=== PATIENT | female | born 1990 | race Caucasian/White ===

== ENCOUNTER 2017-05-09 12:31 | Emergency (ER) | payer OTHER ==
[~2017-05-09] VITALS: Ht 162.6 cm; Wt 158.3 kg
[~2017-05-09 12:31] MED LIST: BACTRIM,SEPT1 TABLET PO; CEFDINIR300 MG PO; CLEOCIN300 MG PO; DEPAKOTE250 MG PO; DEPAKOTE500 MG PO; ENDOCET 5-3251 EACH PO; GEODON60 MG PO; IBUPROFEN800 MG PO; KEFLEX500 MG PO; LORTAB 5-325 M1 EACH PO; MOTRIN600 MG PO; NO MEDICATIONS; NOHOMEMEDS; NORCO 5/3251 TABLET PO; ONDANSETRON HCL8 MG PO; PERCOCET 5/31 TABLET PO; PREDNISONE10 MG PO; PRENATAL TABLE1 EAC3 PO; PRENATAL VITAM1 EAC1 PO; PROZAC20 MG PO; TORADOL10 MG PO; TRAMADOL HCL50 MG PO; TRILEPTAL300 MG PO; TYLENOL EXTRA500 MG PO; VICODIN 5-3001 EACH PO; ZITHROMAX Z-PA250 MG PO; ZOFRAN4 MG PO; ZOFRAN8 MG PO
[2017-05-09 14:27] LABS: HEMATOCRIT 46.2 % (36.0-46.0); HEMOGLOBIN 15.7 G/DL (11.9-15.5); MCH 30.1 PG (29.0-34.0); MCV 88.7 FL (83-99); PLATELET COUNT 273 K/uL (156-360); RBC DIS.WIDTH-CV 13.2 % (11.8-14.6); RBC DIS.WIDTH-SD 42.8 % (39-53); RED BLOOD COUNT 5.21 M/uL (3.80-5.20); WHITE BLOOD COUNT 8.7 K/uL (4.1-10.2)
[2017-05-09 14:36] LABS: CHLORIDE 103 mEq/L (99-109); SODIUM 139 mEq/L (136-147)
[2017-05-09 14:37] LABS: GLUCOSE 151 mg/dL (70-99)
[2017-05-09 14:41] LABS: CREATININE 0.8 mg/dL (0.6-1.3); GFR ESTIMATE (CALCULATED) > 59 mL/min/
[2017-05-09 14:42] LABS: UREA NITROGEN (BUN) 11 mg/dL (9-23)
[2017-05-09 14:49] LABS: QUANTITATIVE HCG < 4.0 MIU/ML
[2017-05-09] MEDS ORDERED: HYDROCHLOROTHIA25 MG PO (14:56)
[2017-05-09 15:25] VITALS: BP 164/106
== END 2017-05-09 15:25 | disposition home or self-care (01) ==
LOC: EME 12:31
PROVIDERS: Physician Assistant
DX: I10 Essential (primary) hypertension (principal); F41.9 Anxiety disorder, unspecified; F32.9 Major depressive disorder, single episode, unspecified; F31.9 Bipolar disorder, unspecified; Z86.73 Personal history of transient ischemic attack (TIA), and cerebral infarction without residual deficits
CPT/HCPCS: 80048; 84702; 85027